=== PATIENT | male | born 1975 | race Caucasian/White ===

== ENCOUNTER 2019-02-07 09:04 | Day surgery (SDC) | payer BC ==
[~2019-02-07 09:04] MED LIST: Buffered Lidocaine 1% SYRIN* 1 ML/SYRINGE INTRADERM ONE; Lactated Ringers 1000 ML Bag* 1,000 ML IV SCH
[2019-02-07] MEDS ORDERED: ceFAZolin 2 GM in NS PREMIX(*) 2 GM/100 ML BAG IVPB ONE (09:18)
[2019-02-07] MEDS ORDERED: Buffered Lidocaine 1% SYRIN* 1 ML/SYRINGE INTRADERM ONE (09:18)
[2019-02-07] MEDS ORDERED: Ropivacaine 0.2% * 2 MG/ML VIAL ONE (10:11)
[2019-02-07] MEDS ORDERED: Bupivacaine 0.25% SDV* 30 ML ONE (10:25)
[2019-02-07] MEDS ORDERED: fentaNYL* 50 MCG/ML 2 ML VIAL (100 MCG VIAL) ONE ×2 (10:44→12:24)
[2019-02-07] MEDS ORDERED: Midazolam* 1 MG/ML 5 ML VIAL (5 MG) ONE (10:44)
[2019-02-07] MEDS ORDERED: Propofol* 10 MG/ML 20 ML BTL ONE ×2 (10:44→12:39)
[2019-02-07] MEDS ORDERED: Rocuronium* 10 MG/ML VIAL ONE (11:05)
[2019-02-07] MEDS ORDERED: Dexamethasone IV* 4 MG/ML 1 ML (4 MG) ONE (11:36)
[2019-02-07] MEDS ORDERED: Ondansetron INJ* 2 MG/ML VIAL ONE ×2 (12:24→14:50)
--- NOTE | 2019-02-07 14:44 | OP ---
CC: Dr. Damaso Gutierrez* OPERATIVE REPORT: DATE OF OPERATION: 02/07/19 - [facility] DATE OF : 75 SURGEON: Shital La MD ASSISTANTS: 1. ARNOLD Polanco 2. ARNOLD Ashford Assistants were needed for the entirety of the case to help with positioning, retraction and utilized throughout all portions of the case. ANESTHESIOLOGIST: Dr. Quezada. ANESTHESIA: General interscalene block. PRE-OP DIAGNOSIS: Left shoulder full-thickness tear of the rotator cuff and bicipital tendonitis. POST-OP DIAGNOSIS: Left shoulder full-thickness tear of the rotator cuff and bicipital tendonitis. OPERATIVE PROCEDURES: Left shoulder arthroscopy: 1. Extensive glenohumeral debridement including debridement of labrum. 2. Subacromial decompression with acromioplasty. 3. Rotator cuff repair in double row fashion of supraspinatus tendon for a small tear. 4. Open biceps tenodesis. COMPLICATIONS: None. ESTIMATED BLOOD LOSS: Minimal. IMPLANTS USED: One Healicoil, one Multifix, one Q-Fix. INDICATIONS: Eliazar Kaufman is a male who presents with shoulder pain after a fall. He has failed conservative management including physical therapy, antiinflammatories, ice and heat. He elected to proceed with surgical treatment. Risks and benefits were discussed at length included but are not limited to bleeding, infection, damage to nerves, vessels, and surrounding structures; wound nonhealing; persistent pain, need for further surgery, scarring, stiffness, incomplete relief of symptoms, risk of anesthesia, failure of the repair, risk of DVT. He elected to proceed. OPERATIVE NOTE: The patient was greeted in the preoperative area by the attending surgeon. The correct extremity was marked and consent was confirmed. The patient underwent interscalene nerve block by the anesthesiologist. After which, he was brought back to the operating suite where he was placed in supine position on the operating table. After which, he underwent general anesthesia with endotracheal intubation. The patient was then placed in the right lateral decubitus position with all bony prominences padded. An axillary roll was placed, secured with peg board. The patient while in the preop area was assessed for range of motion. He was able to flex to about 130 to 135 and externally rotate to about 45 and abduct to about 90. The patient's joint was quite stiff. The left shoulder was draped unsterile with 10 pounds of traction. Left shoulder was then prepped and draped in the usual sterile fashion beginning with chlorhexidine soap, scrub, and alcohol wipe and a final prep with ChloraPrep. After appropriate surgical pause indicating side, site, and procedure, administration of antibiotics, the posterolateral incision was made using an 11 blade. The scope was brought into the joint. Joint was examined. The patient had stiffness with range of motion prior to surgery and range of motion was assessed in the preop. There was abundant synovitis that was present. The joint was quite tight, but the glenohumeral joint had grade 0 changes. The anterior and posterior meniscus had some mild fraying. The biceps was tendinopathic and has synovitis as well. There was damage to the anterior aspect of the rotator cuff and the bridger. Subscap was intact. The infraspinatus was intact. The inferior recess was carefully visualized and was intact. Once the anterior portal was made in an outside-in fashion, the shaver was used to debride the anterior, posterior, and superior labrum. The biceps was then tenotomized for later tenodesis. The undersurface of the cuff was examined and the bridger was debrided back. After intraarticular portion, attention was directed to the subacromial space. With the scope in the subacromial space, the lateral portal was made in an outside- in fashion. Shaver was used to debride back the abundant thick bursa. There was a large anterolateral over arching spur that was debrided back using 4-0 oval woodrow. This allowed for room and visualization of the cuff. The abundant bursa was carefully removed. The 4-0 oval woodrow was used to remove the large anterolateral spur. This made room for the cuff. After this was completed, attention was directed to the rotator cuff. The cuff was then visualized. The very anterior aspect of the supraspinatus had an obvious tear of full thickness. This was then carefully probed. The shaver was used to debride back the cuff tear. This was again a small full-thickness tear. The electrocautery device was used to skeletonize the greater tuberosity. 4-0 oval woodrow was used to decorticate as well as rasp. Through a separate stab incision , one 4.75 Healicoil was placed with excellent purchase. The bone quality was pretty good. The anchor was found to be stable. The sutures were then passed through the tendon in a horizontal mattress configuration and then tied down using arthroscopic knot-tying technique. Remaining suture was then brought through Multifix anchor, which was placed laterally for lateral row fixation. Final images were obtained. The cuff was appropriately reestablished. The shoulder was lavaged. Attention was directed to the biceps. The bed was air planed to the left side. The anterior aspect of the shoulder was prepped again using ChloraPrep. A 15 blade was used to make incision in line with the biceps tendon. The soft tissues were spread and the pec fascia was identified. Remainder of the dissection was done bluntly. The pec was elevated. The biceps was then visualized and brought through the wound. The biceps had synovitis that was present. The groove was then prepared in the usual fashion using electrocautery device, red ball rasp, and osteotome. The Q- Fix was deployed with excellent purchase. The sutures were passed through a Stephen-Henrry configuration in the tendon 1 cm proximal musculotendinous junction. The excess stump was excised. The biceps was shuttled back. The wounds were copiously irrigated with sterile saline. The portals were closed with 3-0 nylon. The anterior wound was closed in layers with 3-0 Monocryl for the subcu and then running. Sterile dressings were applied. A Cryo/Cuff and UltraSling were applied. He was awoken from anesthesia and and transferred to the PACU in stable condition. POSTOPERATIVE PLAN: He will be nonweightbearing. He will be in the sling for 6 weeks. He will be discharged on pain medication. DVT prophylaxis was considered, but deferred due to no previous personal or family history. I will see the patient back in 10 to 14 days. [id number]/[facility] #: [id number] ARIEL
[2019-02-07] MEDS ORDERED: DiMENhydriNATE IV* 50 MG/ML VIAL IV PUSH PRN (14:46)
[2019-02-07] MEDS ORDERED: fentaNYL* 50 MCG/ML 2 ML VIAL (100 MCG VIAL) IV PRN (14:46)
[2019-02-07] MEDS ORDERED: oxyCODONE/Acetamin 5/325 MG* TAB PO PRN (14:46)
[2019-02-07] MEDS ORDERED: Ondansetron INJ* 2 MG/ML VIAL IV PRN (14:46)
[2019-02-07] MEDS ORDERED: Naloxone* 0.4 MG/ML 1 ML VIAL IV PRN (14:46)
[2019-02-07 16:23] VITALS: BP 113/81
== END 2019-02-07 16:08 | disposition home or self-care (01) ==
LOC: OR 09:04
PROVIDERS: ATTEND Orthopaedic Surgery
DX: S46.012A Strain of muscle(s) and tendon(s) of the rotator cuff of left shoulder, initial encounter (principal); M75.22 Bicipital tendinitis, left shoulder; W19.XXXA Unspecified fall, initial encounter; Y92.9 Unspecified place or not applicable; G89.18 Other acute postprocedural pain; J45.909 Unspecified asthma, uncomplicated; F41.8 Other specified anxiety disorders; Z83.3 Family history of diabetes mellitus
CPT/HCPCS: C1713; C1776; J0690; J1100; J2250; J2405; J2704; J2795; J3010; J3490